=== PATIENT | male | born 1985 | race Asian ===

== ENCOUNTER 2022-01-14 00:58 | Inpatient (IN) | payer MEDICAID ==
[~2022-01-14] VITALS: Ht 165.1 cm; Wt 77.0 kg
[2022-01-14] MEDS ORDERED: LORazepam 2 MG/ML VIAL IM ONE (02:45)
[2022-01-14 03:36] LABS: COVID AG,FIA SOURCE NASOPHARYNGEAL
[2022-01-14] MEDS ORDERED: HALOPERIDOL 5 MG TABLET PO PRN (04:30)
[2022-01-14] MEDS ORDERED: LORazepam 2 MG TABLET PO PRN (04:30)
[2022-01-14 09:05] VITALS: BP 110/81
[2022-01-14 09:40] VITALS: BP 110/81
[2022-01-14] MEDS ORDERED: DOCUSATE SODIUM 100 MG CAPSULE PO PRN (12:00)
[2022-01-14] MEDS ORDERED: NICOTINE 14 MG/24 HOUR PATCH TD PRN (12:00)
[2022-01-14] MEDS ORDERED: PETROLATUM,WHITE 28 GM JELLY TP PRN (12:00)
[2022-01-14] MEDS ORDERED: GuaiFENesin/D-METHORPHAN [SUGAR-FREE] 200-20MG/10 ML SYRUP UDCUP PO PRN (12:00)
[2022-01-14] MEDS ORDERED: LOPERAMIDE HCL 2 MG CAPSULE PO PRN (12:00)
[2022-01-14] MEDS ORDERED: ALBUTEROL SULFATE HFA 90 MCG/PUFF 8 GM INHALER IH PRN (12:00)
[2022-01-14] MEDS ORDERED: ONDANSETRON HCL 4 MG TABLET PO PRN (12:00)
[2022-01-14] MEDS ORDERED: ACETAMINOPHEN 325 MG TABLET PO PRN (12:00)
[2022-01-14] MEDS ORDERED: MAG HYDROX/AL HYDROX/SIMETH ES 30 ML SUSPENSION UDCUP PO PRN (12:00)
[2022-01-14] MEDS ORDERED: MAGNESIUM HYDROXIDE SUSPENSION 30 ML UDCUP PO PRN (12:00)
[2022-01-14] MEDS ORDERED: CloNIDine HCL 0.1 MG TABLET PO PRN (12:00)
[2022-01-14 16:15] VITALS: BP 120/74
[2022-01-14 16:30] VITALS: BP 119/71
[2022-01-14] MEDS: IBUPROFEN 400 MG TABLET PO PRN (20:38)
[2022-01-14] MEDS: ZOLPIDEM TARTRATE 10 MG TABLET PO PRN (20:49)
[2022-01-14 21:49] VITALS: BP 119/73
[2022-01-15 00:50] VITALS: BP 113/67
[2022-01-15 08:16] VITALS: BP 130/67
[2022-01-15] MEDS ORDERED: PETROLATUM,WHITE 28 GM JELLY TP PRN (10:45)
[2022-01-15] MEDS ORDERED: NICOTINE 14 MG/24 HOUR PATCH TD PRN (10:45)
[2022-01-15] MEDS ORDERED: GuaiFENesin/D-METHORPHAN [SUGAR-FREE] 200-20MG/10 ML SYRUP UDCUP PO PRN (10:45)
[2022-01-15] MEDS ORDERED: MAG HYDROX/AL HYDROX/SIMETH ES 30 ML SUSPENSION UDCUP PO PRN (10:45)
[2022-01-15] MEDS ORDERED: CloNIDine HCL 0.1 MG TABLET PO PRN (10:45)
[2022-01-15] MEDS ORDERED: IBUPROFEN 400 MG TABLET PO PRN (10:45)
[2022-01-15] MEDS ORDERED: ONDANSETRON HCL 4 MG TABLET PO PRN (10:45)
[2022-01-15] MEDS ORDERED: ALBUTEROL SULFATE HFA 90 MCG/PUFF 8 GM INHALER IH PRN (10:45)
[2022-01-15] MEDS ORDERED: ACETAMINOPHEN 325 MG TABLET PO PRN (10:45)
[2022-01-15] MEDS ORDERED: MAGNESIUM HYDROXIDE SUSPENSION 30 ML UDCUP PO PRN (10:45)
[2022-01-15] MEDS ORDERED: LOPERAMIDE HCL 2 MG CAPSULE PO PRN (10:45)
[2022-01-15] MEDS ORDERED: DOCUSATE SODIUM 100 MG CAPSULE PO PRN (10:45)
[2022-01-15 16:11] VITALS: BP 122/75
[2022-01-15] MEDS: IBUPROFEN 400 MG TABLET PO PRN (17:03)
[2022-01-15] MEDS: ZOLPIDEM TARTRATE 10 MG TABLET PO PRN (20:43)
[2022-01-16 05:56] VITALS: BP 116/68
[2022-01-16] MEDS: IBUPROFEN 400 MG TABLET PO PRN (06:02)
[2022-01-16 08:10] VITALS: BP 103/56
== END 2022-01-16 12:59 | disposition left against medical advice (07) | DRG 750 ==
LOC: EMS 01:00 → B2S 06:25
PROVIDERS: ADMIT Psychiatry & Neurology Psychiatry; ATTEND Psychiatry & Neurology Psychiatry
DX: F20.9 Schizophrenia, unspecified (principal); G93.40 Encephalopathy, unspecified; T71.162A Asphyxiation due to hanging, intentional self-harm, initial encounter; F33.2 Major depressive disorder, recurrent severe without psychotic features; R45.851 Suicidal ideations; I95.9 Hypotension, unspecified; F41.9 Anxiety disorder, unspecified; R00.0 Tachycardia, unspecified; Z20.822 Contact with and (suspected) exposure to COVID-19; Z53.29 Procedure and treatment not carried out because of patient's decision for other reasons; Z78.1 Physical restraint status; Y93.89 Activity, other specified; Y92.89 Other specified places as the place of occurrence of the external cause; Y99.8 Other external cause status
CPT/HCPCS: 99291; J2060